=== PATIENT | male | born 1970 | race Caucasian/White ===

== ENCOUNTER → 2021-06-04 | Day surgery (SDC) | payer OTHER ==
[~2021-06-04] VITALS: Ht 175.3 cm; Wt 97.1 kg
[~2021-06-04] MED LIST: ASPIRIN EC81 MG PO; AVAPRO150 MG PO; CETIRIZINE HCL10 MG PO; LEXAPRO20 MG PO; MULTIVITAMIN1 EACH PO; SYNTHROID50 MCG PO
== END | disposition home or self-care (01) ==
LOC: FAS 07:46
DX: Z12.11 Encounter for screening for malignant neoplasm of colon (principal); K63.5 Polyp of colon; K62.1 Rectal polyp; E03.9 Hypothyroidism, unspecified; I10 Essential (primary) hypertension; Z88.0 Allergy status to penicillin; Z79.82 Long term (current) use of aspirin; Z79.899 Other long term (current) drug therapy
CPT/HCPCS: J2704; J7120